=== PATIENT | male | born 1960 | race Caucasian/White ===

== ENCOUNTER → 2023-05-03 08:10 | Outpatient (CLI) | payer SELFPAY ==
[2023-05-03 21:12] LABS: Alanine Aminotransferase 28 U/L (12-78); Albumin Level 4.1 g/dl (3.5-5.0); Albumin/Globulin Ratio 1.4 (1.1-1.8); Alkaline Phosphatase 105 U/L (38-126); Anion Gap 14.9 mEq/L (5-15); Aspartate Amino Transferase 28 U/L (17-59); Bilirubin,Total 0.8 mg/dl (0.2-1.3); Blood Urea Nitrogen 9 mg/dl (9-20); Carbon Dioxide 22 mmol/L (22.0-30.0); Chloride 100 mmol/L (98-107); Chol/HDL Ratio 4.2 (1-3.5); Cholesterol 140 mg/dl (140-200); Estimated Glomerular Filt Rate 86 ml/min (>60); GFR (African American) 104 ML/MIN (>60); HDL Cholesterol 33 mg/dl (40-60); Potassium 3.9 mmoL/L (3.5-5.1); Sodium 133 mmol/L (136-145); Total Protein,Serum 7.1 g/dl (6.3-8.2); Triglycerides 154 mg/dl (30-150); VLDL Cholesterol 31 mg/dL (0-40)
[2023-05-03 21:19] LABS: Glucose 402 mg/dl (74-100)
[2023-05-03 21:23] LABS: Direct LDL Cholesterol 85.01 mg/dL (100-129)
[2023-05-03 21:38] LABS: Basophils # 0.1 K/mm3 (0-0.2); Basophils % 1.2 % (0.1-2.0); Eosinophils # 0.2 K/mm3 (0.0-0.4); Eosinophils % 2.4 % (0.1-12.0); Hematocrit 52.9 % (42.0-52.0); Lymphocytes # 2.2 K/mm3 (0.7-4.5); Lymphocytes % 27.2 % (10-50); Mean Corpuscular Hemoglobin 34.3 pg (27.0-31.2); Mean Corpuscular Volume 100.8 fl (80-94); Mean Platelet Volume 12.5 fl (7.4-10.4); Monocytes # 0.5 K/mm3 (0.1-1.0); Monocytes % 6.6 % (1.7-9.3); Neutrophils # 5.1 K/mm3 (1.8-7.8); Neutrophils % 62.5 % (37.0-80.0); Platelet Count 164 K/mm3 (142-424); Red Blood Count 5.24 M/mm3 (4.60-6.20); Red Cell Distribution Width 13.5 % (11.5-17.5); White Blood Count 8.2 K/mm3 (4.8-10.8)
[2023-05-03 21:42] LABS: Prostate Specific Ag, Diagnost 0.329 ng/ml (0.0-4.0)
[2023-05-03 22:06] LABS: Hemoglobin A1C 11.3 % (4.0-6.0)
== END ==
PROVIDERS: PCP Family Medicine; Visit Provider Family Medicine
DX: E11.9 Type 2 diabetes mellitus without complications (principal); Z79.4 Long term (current) use of insulin; Z79.899 Other long term (current) drug therapy; Z12.5 Encounter for screening for malignant neoplasm of prostate
CPT/HCPCS: 80053; 80061; 83036; 84153; 85025

== ENCOUNTER 2025-05-17 10:41 | Emergency (ER) | payer SELFPAY ==
[2025-05-17 10:48] VITALS: BP 176/102; PULSE 87; O2SAT 96
[2025-05-17 10:49] VITALS: BP 171/100; PULSE 86; O2SAT 95
[2025-05-17 10:51] VITALS: BP 171/100; PULSE 85; RESP 13; TEMP 36.5; O2SAT 95; BMI 34.3
--- NOTE | 2025-05-17 10:56 | XR_ITS ---
FINAL REPORT CLINICAL HISTORY: Left knee pain after stepping up injury COMPARISON: None FINDINGS: LEFT KNEE 3 views of the left knee were obtained. There is no acute fracture or dislocation. Joint spaces are well-maintained. Chondrocalcinosis is noted at the meniscus. IMPRESSION: No acute bony abnormality. Reviewed, Interpreted and Dictated by Tim Hardy MD Transcribed by Osiris Herring Authenticated and [facility]
--- NOTE | 2025-05-17 10:57 | CA_ITS ---
FINAL REPORT TECHNIQUE: Compression maki scale and Doppler evaluation CLINICAL HISTORY: Left popliteal pain x 6 hours without injury FINDINGS: Femoral and popliteal veins show normal compressibility and flow. Visualized portion of the calf veins are patent by Doppler exam. IMPRESSION: No evidence of left lower extremity deep venous thrombosis Reviewed, Interpreted and Dictated by Tim Hardy MD Transcribed by Osiris Herring Authenticated and [facility]
--- NOTE | 2025-05-17 10:59 | HMH.EDGENADL ---
Discharge Plan Disposition Patient Disposition: Home, Self-Care Condition: Good Prescriptions Prescriptions: No Action pioglitazone 45 mg tablet 45 mg PO DAILY Qty: 90 3RF (DME) insulin syringe,safety needle 0.3 mL 29 gauge x 1/2 syringe See Rx Instructions .Route Qty: 100 3RF Rx Instructions: As directed amlodipine [Norvasc] 10 mg tablet 10 mg PO DAILY Qty: 90 3RF aspirin [Adult Low Dose Aspirin] 81 mg tablet,delayed release (DR/EC) 81 mg PO DAILY Qty: 90 3RF losartan 100 mg tablet 100 mg PO DAILY Qty: 90 3RF meloxicam 15 mg tablet 15 mg PO DAILY Qty: 90 3RF insulin glargine [Lantus Solostar U-100 Insulin] 100 unit/mL (3 mL) insulin pen 10 unit SQ HS Qty: 3 2RF hydrochlorothiazide 25 mg tablet See Rx Instructions .ROUTE .COMPLEX Qty: 90 3RF Dose Instruction: TAKE 1 TABLET BY MOUTH EVERY DAY Rx Instructions: TAKE 1 TABLET BY MOUTH EVERY DAY tadalafil 20 mg tablet 20 mg PO DAILY PRN (Reason: ED) Qty: 30 2RF Rx Instructions: administer approximately 30min before sexual activity; do not use more than 1 dose per 24hrs atorvastatin [Lipitor] 20 mg tablet 20 mg PO DAILY Qty: 90 3RF Novolin 70/30 U-100 Insulin 100 unit/mL (70-30) suspension See Rx Instructions .ROUTE .COMPLEX Qty: 30 1RF Dose Instruction: INJECT 15 UNITS SUBCUTANEOUSLY TWICE A DAY Rx Instructions: INJECT 15 UNITS SUBCUTANEOUSLY TWICE A DAY Referrals Follow up/Referrals: Jonathon Figueroa APRN [Primary Care Provider, Family Practice] - See instructions Cruz Kenny DO [Staff Physician, Orthopedics] - See instructions Activity Restrictions/Add. Instructions Additional Instructions/Restrictions: Please return to the emergency department with any worsening signs or symptoms. Please utilize your crutches and knee brace and ambulate as tolerated. I recommend rest ice ibuprofen Tylenol other anti-inflammatory medications as needed for symptomatic relief. We will call you with any results of your ultrasound once full radiology report is resulted. No news is good news. Please follow-up with orthopedic provider in the upcoming days/weeks. You will have to call to make this appointment. Could consider obtaining MRI of your knee if symptoms persist greater than 1 to 2 weeks. Clinical Impressions Clinical Impression: Strain of left knee Instructions Patient Instructions: DI for Knee Pain Print Language Print Language: Maltese Discharge ED Provider: Michelle Vera General Adult HPI General Chief complaint: PAIN Stated complaint: WC 05/17 0830, inj behind left knee Time Seen by Provider: 05/17/25 10:45 Mode of Arrival: Wheelchair Source of Information: Patient Description of Symptoms (Recalled from ER Triage Doc. by RN): pt presents to ED with c/o left leg pain. 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 pt reports pain from hip down to calf. pt reports pain is not in front of knee, but back of knee. History of Present Illness HPI narrative: 64-year-old male presents the emergency department with left knee pain that occurred this morning when he was trying to get up in my semi- . Patient states that he was stepping up in his truck with his right leg, when he went to lift his left leg when he heard a pop , and severe pain behind his knee, difficulty with ambulating, does have somewhat pain limited range of motion, patient has any fever chills chest pain shortness of breath, nausea vomiting constipation diarrhea no saddle anesthesia, no urinary bladder or bowel dysfunction, no lower back pain, no radicular symptomatology, no numbness or tingling down the lower extremity, no real lower extremity weakness, patient states when he places his full weight on the knee it is painful, patient states he has been walking on his toes , which helps. Patient is a current everyday smoker denies any alcohol or drug use, other past medical history consistent with hypertension, T2DM, hyperlipidemia. Initial triage vitals unremarkable Please note that above description of symptoms, in this electronic medical record under categorization of recalled from ER triage doctor by RN are reflective of an initial nursing assessment, however, is not reflective of my full history and physical exam that was personally taken and clarified. Consequentially, this preceding description of symptoms, which may include the patient's categorized chief complaint in the EMR, do not reflect my personal clinical impression, and the ultimate description of history of present illness and patient stated complaints should be deferred to this section of the note. Unless stated otherwise or congruent with this section of the note, additional signs, symptoms, or incongruence should be interpreted as inaccurate with my clinical impression. Onset (ago): hour(s) Related Data Previous Rx's ?Medication ?Instructions ?Recorded amlodipine 10 mg tablet (Norvasc) 10 mg PO DAILY #90 tabs 05/04/24 aspirin 81 mg tablet,delayed 81 mg PO DAILY #90 tabs 05/04/24 release (Adult Low Dose Aspirin) insulin glargine 100 unit/mL (3 10 unit (0.1 mL) SQ HS #3 mL 05/04/24 mL) subcutaneous pen (Lantus Solostar U-100 Insulin) losartan 100 mg tablet 100 mg PO DAILY #90 tabs 05/04/24 meloxicam 15 mg tablet 15 mg PO DAILY #90 tabs 05/04/24 hydrochlorothiazide 25 mg tablet See Rx Instructions .Route 07/27/24 .COMPLEX #90 tabs tadalafil 20 mg tablet 20 mg PO DAILY PRN ED #30 tabs 07/27/24 pioglitazone 45 mg tablet 45 mg PO DAILY #90 tabs 09/14/24 insulin syringe,safety needle 0.3 #100 ea 09/19/24 mL 29 gauge x 1/2 atorvastatin 20 mg tablet (Lipitor) 20 mg PO DAILY #90 tabs 01/17/25 insulin human U-100 NPH-regulr See Rx Instructions .Route 02/05/25 70-30 mix 100 unit/mL subcutaneous .COMPLEX #30 mL susp (Novolin 70/30 U-100 Insulin) Allergies Allergy/AdvReac Type Severity Reaction Status Date / Time Penicillins Allergy syncope Verified 07/27/24 14:57 Sulfa (Sulfonamide Allergy Hives Verified 07/27/24 14:57 Antibiotics) [facility] Disclaimer: The information contained in this section may have been updated after the patient was seen, as this information can be updated by other users. Medical History Encounter for commercial driving license (CDL) exam RACHEL-inhibitor cough Metformin adverse reaction Toe infection Surgical History Hx of rhinoplasty Hx of tonsillectomy Family History Father Diabetes Mother COPD (chronic obstructive pulmonary disease) Social History Smoking Status: Current every day smoker alcohol intake: former current occupational status: employed Travel in the last 8 weeks?: Inside the [place] Have you lived/traveled outside US in past 30 days?: No Contact w/someone who lives/traveled outside US past 30 days?: No Exposure to someone with infectious disease in past 14 days?: No Do you have a fever (greater than 100.4 F or 38 C)?: No Have you tested positive for COVID-19?: No Exposed to someone with COVID-19 in past 14 days?: No Do you have a sore throat?: No Do you have a cough?: No Do you have any weakness?: No Do you have any diarrhea?: No Are you experiencing any unusual bleeding?: No Do you have any muscle aches/pain?: No Do you have any abdominal pain?: No Are you experiencing loss of taste or smell?: No Other Medical History Have you received the Pneumonia Vaccine: No ROS Obtained: Yes All systems reviewed & no additional complaints except as documented Physical Exam General General appearance: alert and in no apparent distress Head Head exam: atraumatic and normocephalic Eye Eye exam: Present PERRL and EOMI ENT ENT exam: Present mucous membranes moist Neck Neck exam: Present normal inspection Chest Chest inspection: Present normal inspection and symmetric chest wall rise Respiratory Respiratory exam: Present normal lung sounds bilaterally; Absent respiratory distress Cardiovascular Cardiovascular exam: Present regular rate and normal rhythm Abdominal Exam Abdominal exam: Present soft; Absent tenderness Extremities Exam Extremities exam: Present normal inspection, full ROM, calf tenderness and other (Patient has some mild calf tenderness, has some difficulty with flexion, but does have near full flexion no difficulty with extension, 5 out of 5 strength, otherwise neurovascular intact, pain behind his posterior aspect/popliteal fossa of the left knee, no midline joint effusion or significant soft); Absent tenderness or joint swelling Neurological Exam Neurological exam: Present alert and oriented X3 Psychiatric Psychiatric exam: Present normal affect Skin Skin exam: Present warm and dry Medical Decision Making Medical Records Medical records reviewed: Yes I reviewed the patient's medical records. Screening: Per USPSTF and CDC recommendations, given the prevalence of disease in our region, it is our hospital?s policy to screen for HIV and viral Hepatitis for all patients aged 18 and over and those with ongoing risk factors. Tony Inquiry Pt receiving controlled substance: No Tony was queried for this patient: No Vital Signs: 05/17/25 10:48 05/17/25 10:49 05/17/25 10:51 Temperature 97.7 F Temperature Source Oral Pulse Rate 87 86 Pulse Rate [Left Radial] 85 Respiratory Rate 13 Blood Pressure 176/102 H 171/100 H Blood Pressure [Right Arm] 171/100 H Blood Pressure Mean [Right Arm] 123 02 Sat by Pulse Oximetry 96 95 95 Orders (Tests/Meds): ED MEDICATIONS Discontinued Medications Generic Name Dose Route Start Last Admin Trade Name John PRN Reason Stop Dose Admin Ketorolac Tromethamine 15 mg 05/17/25 10:58 05/17/25 11:29 Ketorolac 15mg/Ml Vial IM 05/17/25 10:59 15 mg ONCE ONE Administration ORDERS Category Date Time Status XR knee LT 3V Stat Exams 05/17/25 10:56 Taken CA venous doppler LE LT Stat Y 05/17/25 10:57 Completed Medical Decision Narrative: 64-year-old male presents to the emergency department with left knee pain that occurred this morning when trying to get up into his truck, describes it as a pop , differential diagnose include but not limited to, ruptured Valdez's cyst, DVT, knee sprain/strain, knee fracture, bursitis, knee ligamentous injury among others. I discussed this patient's case with the attending physician Dr. Vera Will give the patient 15 mg IM Toradol for symptomatic relief, will also obtain a left knee x-ray as well as lower extremity duplex ultrasound to rule out DVT and other pathology. I reviewed the patient's knee x-ray along with corresponding radiologic report, no acute abnormality. I along with the attending physician reviewed and independently interpreted the patient's duplex ultrasound, negative for DVT, no Valdez's cyst. I discussed these results/recommendations with the patient and family the bedside I recommend rest anti-inflammatory medications ice, elevation for symptomatic relief, will give the patient crutches as needed for ambulation, ambulate as tolerated, patient states he has knee brace at home that he will utilize as needed. Patient will follow-up with orthopedic provider in the upcoming days/weeks. We will call patient with any results of his radiology report of his duplex ultrasound once resulted, discussed/gave options for the patient to wait for full report or be discharged home to self-care patient would like to be discharged home to self-care will call patient with any results that are actionable. Patient was given strict ED return precautions. Patient follow-up PCP and other providers in the upcoming days/weeks. Patient voiced understanding and agreement with the current treatment plan/discharge plan Critical Care Critical Care Time Critical Care Time: No
--- OUTSIDE RECORDS SUMMARY | 2025-05-17 11:18 | XMS_ITS | Encounter Summary ---
Author Organization [place] [address] Care Team Providers Care Porcelain Finish Sprayer Name Role Phone Cleo Bolanos APRN Primary Care Provider [phone] Encounter Details Date Type Department Care Team (Late st Contact Info) Description 10/04/2018 Patient Outreach [facility] [address] [place] [address] Cleo Bolanos APRN [address] [place] [address] Social History Tobacco Use Types Packs/Day Years Used Date Smoking Tobacco: Every Day Cigarettes 1 40 Smokeless Tobacco: Never Comments:pt smokes 5 cigars a day Alcohol Use Standard Drinks/Week Comments Yes 0 (1 standard drink = 0.6 oz pur e alcohol) social Sex and Gender Information Value Date Recorded Sex Assigned at Not on file Legal Sex Male 1:47 AM EDT Gender Identity Not on file Sexual Orientation Not on file documented as of this encounter Plan of Treatment Scheduled Orders Name Type Priority Associated Diagnoses Orde r Schedule BASIC METABOLIC PANEL Lab Routine DM (diabetes mellitus) (HCC) 1 Occurrences starting 10/04/2018 until 01/03/2019 HEPATIC FUNCTION PANEL Lab Routine DM (diabetes mellitus) (HCC) 1 Occurrences starting 10/04/2018 until 01/03/2019 LIPID SCREEN Lab Routine DM (diabetes mellitus) (HCC) 1 Occurrences starting 10/04/2018 until 01/03/2019 HEMOGLOBIN A1C Lab Routine DM (diabetes mellitus) (HCC) 1 Occurrences starting 10/04/2018 until 01/03/2019 documented as of this encounter Goals Goal Patient Goal Type Associated Problems Recent Progress Patient-Stated? Author Blood Pressure < 130/80 Blood Pressure 136/84(2022 8:27 AM EST) No Ilene Blackwell DO BMI (Calculated) < 30 General 35.3(07/27/19 8:27 AM EST) No Dunia Nelson CCMA Maintain a healthy diet, exercise regularly and maintain an ideal body weight General No Machelle Cruz RMA Stay Tobacco Free Lifestyle No Machelle Cruz RMA HDL > 40 Result Component 35(07/27/2022 9:04 AM EST) No Ilene Blackwell DO HEMOGLOBIN A1C < 7.0 Result Component 8(07/27/2022 9:04 AM EST) No Ilene Blackwell DO LDL CALC < 100 Result Component 76(07/27/2022 9:04 AM EST) No Ilene Blackwell DO documented as of this encounter Visit Diagnoses Diagnosis DM (diabetes mellitus) (HCC) Type II or unspecified type diabetes mellitus without mention of complication, not stated as uncontrolled documented in this encounter Care Teams Porcelain Finish Sprayer Relationship Specialty Start Date End Date Cleo Bolanos APRN [address] [place] [phone] PCP - General Nurse Practitioner 09/14/18 03/12/24 documented as of this encounter
--- OUTSIDE RECORDS SUMMARY | 2025-05-17 11:18 | XMS_ITS | Encounter Summary ---
Author Organization [place] [address] Care Team Providers Care Acquisitions Logistics Analyst Name Role Phone Cleo Bolanos APRN Primary Care Provider [phone] Encounter Details Date Type Department Care Team (Late st Contact Info) Description 11/25/2018 [facility] [address] [place] [address] Cleo Bolanos APRN [address] [place] [address] Social History Tobacco Use Types [...] DM (diabetes mellitus) (HCC) 1 Occurrences starting 11/25/2018 until 02/25/2019 HEPATIC FUNCTION PANEL Lab Routine DM (diabetes mellitus) (HCC) 1 Occurrences starting 11/25/2018 until 02/25/2019 LIPID SCREEN Lab Routine DM (diabetes mellitus) (HCC) 1 Occurrences starting 11/25/2018 until 02/25/2019 HEMOGLOBIN A1C Lab Routine DM (diabetes mellitus) (HCC) 1 Occurrences starting 11/25/2018 until 02/25/2019 documented as of this encounter Goals Goal [...] uncontrolled documented in this encounter Care Teams Acquisitions Logistics Analyst Relationship Specialty Start Date End Date Cleo Bolanos APRN [address] [place] [phone] PCP - General Nurse Practitioner 09/14/18 03/12/24 documented as of this encounter
--- OUTSIDE RECORDS SUMMARY | 2025-05-17 11:18 | XMS_ITS | Patient Health Record ---
[facility] Address [address] [facility] [address] [place] [id number] Care Team Providers Care Coin Machine Servicer Repairer Name Role Phone Harsh Mccollum Unavailable [phone] Allergies Allergen (clinical drug ingredient) Drug/Non Drug Allergy documented on EMR Reaction Allergy Type Onset Date Status Penicillin Unknown Drug Allergy Active Reason For Referral No Information Medications Medication SIG (Take, Route, Frequency, Duration) Notes Start Date End Date Status Losartan Potassium 100 MG 1 tab(s) orally once a day Active metFORMIN HCl 1000 MG 5 mL orally once a day Active Plan Of Treatment No Information Medical (General) History Medical History History ICD Code hypertension type 2 diabetes Surgical History Surgery Date(Month/Year) vasectomy tonsillectomy
--- OUTSIDE RECORDS SUMMARY | 2025-05-17 11:18 | XMS_ITS ---
Author Organization Unknown ENCOUNTERS Encounter Performer Location Date Diagnosis Diagnosis Status Emergency [facility] [address] [place] [address] [id number] Pre Admit [facility] [address] [place] [address] [id number] *Note: Encounters from your own facility or health system may be excluded. Allergies, Adverse Reactions, Alerts Allergen Type Severity Identification Date Sulfa (Sulfonamide Antibiotics) drug allergy [id number] Penicillins drug allergy [id number] Medications Name Date Quantity Days Supplied GPI Number
--- OUTSIDE RECORDS SUMMARY | 2025-05-17 11:18 | XMS_ITS | Clinical Summary ---
Author Organization [facility] Address [address] [place] [address] Phone Care Team Providers Care Residential Builder Name Role Phone Unavailable Primary Care Provider Unavailabl e Allergies Active Allergy Reactions Criticality Noted Date Comments Penicillins Anaphylaxis High 07/11/2010 Sulfa (Sulfonamide Antibiotics) Hives Medium 09/2010 Medications aspirin (ASPIRIN) 81 mg Oral Tablet, ChewableIndicatio ns:Severe uncontrolled hypertension Take 1 Tab by mouth daily. 30 Tab 0 6 Active amLODIPine (NORVASC) 5 mg Oral TabletIndications :Diabetes mellitus with coincident hypertension (HCC) Take 1 Tablet by mouth daily. 90 Tablet 3 3 Active hydroCHLOROthiazi de (HYDRODIURIL) 25 mg Oral TabletIndications :Diabetes mellitus with coincident hypertension (HCC),Renal tubular acidosis, type 4 Take 1 Tablet by mouth daily. 90 Tablet 3 3 Active losartan (COZAAR) 100 mg Oral TabletIndications :Diabetes mellitus with coincident hypertension (HCC) Take 1 Tablet by mouth daily. 90 Tablet 3 3 Active metFORMIN (GLUCOPHAGE) 1,000 mg Oral TabletIndications :Type 2 diabetes mellitus without complication, without long-term current use of insulin (HCC) Take 1 Tablet by mouth 2 times daily (with meals). 180 Tablet 3 3 Active Tadalafil 20 mg Oral TabletIndications :Erectile dysfunction, unspecified erectile dysfunction type Take 1 Tablet by mouth as needed. 6 Tablet 11 3 Active traZODone (DESYREL) 100 mg Oral TabletIndications :Insomnia, persistent Take 1-2 Tablets by mouth nightly. 180 Tablet 3 3 Active meloxicam (MOBIC) 15 mg Oral TabletIndications :Arthritis Take 1 Tablet by mouth daily as needed for Pain. 90 Tablet 3 3 Active pioglitazone (ACTOS) 45 mg Oral TabletIndications :Type 2 diabetes mellitus without complication, without long-term current use of insulin (HCC) Take 1 Tablet by mouth daily. 90 Tablet 3 3 Active pioglitazone (ACTOS) 30 mg Oral TabletIndications :Type 2 diabetes mellitus without complication, without long-term current use of insulin (HCC) Take 1 Tablet by mouth daily. 30 Tablet 3 Active Active Problems Problem Noted Date Diagnosed Date Murmur, heart 03/19/2016 DM (diabetes mellitus) 08/25/2012 Tinnitus, bilateral 08/25/2012 HTN (hypertension) 07/11/2010 Surgical History Surgery Date Site/Laterality Comments FRACTURE SURGERY Right right leg TONSILLECTOMY RHINOPLASTY UVULOPALATOPHARYGOPLASTY Medical History Medical History Date Comments HTN (hypertension) DM (diabetes mellitus) (HCC) 08/25/2012 Murmur, heart 03/19/2016 Family History Medical History Relation Name Comments Diabetes Brother 1 Arthritis Father Diabetes Father Arthritis Mother COPD Mother Pulmonary Fibrosis Mother Diabetes Sister Relation Name Status Comments Brother 1 Alive Brother 2 Alive Father Mother Sister Alive Social History Tobacco Use Types Packs/Day Years Used Date Smoking Tobacco: Every Day Cigarettes 1.5 48.9 Started: 07/05/1976 Smokeless Tobacco: Never Tobacco Cessation:Ready to Q uit: No; Counseling Given: Yes Comments:pt smokes 5 cigars a day Alcohol Use Standard Drinks/Week Comments Yes 0 (1 standard drink = 0.6 oz pur e alcohol) social AUDIT-C Answer Date Recorded Q1: How often do you have a drink containing alc ohol? 2-4 times a month 01/23/2021 Q2: How many drinks containi ng alcohol do you have on a typical day when you are drinking? 1 or 2 01/23/2021 Frequency of Binge Drinking Not on file 01/03 Overall Financial Resource Strain (CARDIA) Answe r Date Recorded How hard is it for you to pa y for the very basics like food, housing, medical care, and heating? Not hard at all 11/05/2020 PHQ-2 Answer Date Recorded PHQ-2 Total Score 0 07/27/2022 [facility] - Occupational Stress Questionnaire Answer Date Recorded Do you feel stress - tense, restless, nervous, or anxious, or unable to sleep at night because your mind is troubled all the time - these days? Not at all 11/05/2020 Exercise Vital Sign Answer Date Recorde d On average, how many days pe r week do you engage in moderate to strenuous exercise (like a brisk walk)? 0 days 11/05/2020 On average, how many minutes do you engage in exercise at this level? 0 min 11/05/2020 Hunger Vital Sign Answer Date Recorded Within the past 12 months, y ou worried that your food would run out before you got the money to buy more. Never true 11/06/19 21 Within the past 12 months, t he food you bought just didn't last and you didn't have money to get more. Never true 11/05/2020 PRAPARE - Transportation Answer Date Re corded In the past 12 months, has l ack of transportation kept you from medical appointments or from getting medications? No 10/2020 In the past 12 months, has l ack of transportation kept you from meetings, work, or from getting things needed for daily living? No 11/05/2020 Sex and Gender Information Value Date Recorded Sex Assigned at Not on file Legal Sex Male 1:47 AM EDT Gender Identity Not on file Sexual Orientation Not on file Last Filed Vital Signs Vital Sign Reading Time Taken Comments Blood Pressure 136/84 07/27/2022 8:27 AM EST Pulse 81 07/27/2022 8:27 AM EST Temperature 37 C (98.6 F) 07/27/2022 8:27 AM EST Respiratory Rate 16 07/27/2022 8:27 AM EST Oxygen Saturation 99% 07/27/2022 8:27 AM EST Inhaled Oxygen Concentration - - Weight 128 kg (282 lb 3.2 oz) 07/27/2022 8:27 AM EST Height 190.5 cm (6' 3 ) 07/27/2022 8:27 AM EST Body Mass Index 35.27 07/27/2022 8:27 AM EST Plan of Treatment Health Maintenance Due Date Last Done Comments Kidney Health: uACR 1980 DTaP/TDaP/Td (1 - Tdap) 1981 Pneumococcal Vaccine 50+ (1 of 2 - PCV) 1981 Cologuard 12/04/2007 Colon Cancer Screening 12/04/2007 Colonoscopy 12/04/2007 FIT 12/04/2007 Sigmoidoscopy 12/04/2007 Virtual Colonography 12/04/2007 Low Dose Lung Cancer Screening 2012 Zoster (1 of 2) 2012 Diabetic Eye Exam 12/16/2022 12/16/2020, , 05/12/2019 Annual Wellness Exam 12/19/2022 12/19/2021 Hemoglobin A1c 01/24/2023 07/27/2022, 12/03, 05/16/2021, Additional history exists Kidney Health: eGFR 07/27/2023 07/27/2022, 12/19/2021, 05/11/2019, Additional history exists Lipids 07/27/2023 07/27/2022, 12/03, 11/01/2020, Additional history exists COVID-19 Vaccine ( - 2024- season) 2025 Influenza Vaccine (#1) 2025 6 (Declined), 08/02/2015 (Declined) Hepatitis C Screening Completed 08/26/2015 Hepatitis B Vaccine Discontinued Meningococcal B Vaccine Aged Out No l onger eligible based on patient's age to complete this topic Goals Goal Patient Goal Type Associated Problems Recent Progress Patient-Stated? Author Blood Pressure < 130/80 Blood Pressure 136/84(2022 8:27 AM EST) No Ilene Blackwell, BMI (Calculated) < 30 General 35.3(07/27/19 8:27 AM EST) No Dunia Nelson CCMA Maintain a healthy diet, exercise regularly and maintain an ideal body weight General No Machelle Cruz RMA Stay Tobacco Free Lifestyle No Machelle Cruz RMA HDL > 40 Result Component 35(07/27/2022 9:04 AM EST) No Ilene Blackwell, HEMOGLOBIN A1C < 7.0 Result Component 8(07/27/2022 9:04 AM EST) No Ilene Blackwell DO LDL CALC < 100 Result Component 76(07/27/2022 9:04 AM EST) No Ilene Blackwell DO Procedures Procedure Name Priority Date/Time Associated Diagnosis Comments COMPREHENSIVE METABOLIC PANEL Routine 07/27/2022 9:04 AM EST Annual physical exam LIPID SCREEN Routine 07/27/2022 9:04 AM EST Annual physical exam HEMOGLOBIN A1C Routine 07/27/2022 9:04 AM EST Annual physical exam HM DIABETES EYE EXAM Routine 12/16/2020 HEPATITIS C ANTIBODY IGM + IGG Routine 08/26/2015 9:30 AM EST Severe uncontrolled hypertension Uncontrolled diabetes with kidney complications (HCC) from Last 3 Months or Most Recently Relevant to Health Maintenance Results * (ABNORMAL) HEMOGLOBIN A1C (07/27/2022 9:04 AM EST) Hgb A1C 8.0(H) 4.2 - 5.6 % 07/27/2022 2:25 PM EST [facility] Est. Avg Glucose 183 mg/dL 07/27/2022 2:25 PM EST [facility] Blood VENOUS BLOOD / Unknown Venipuncture / Unknown 07/27/2022 9:04 AM EST 07/27/2022 9:04 AM EST Narrative [facility] - 07/27/2022 2:25 PM EST REFERENCE RANGE: Normal: 4.0-5.6% Pre-diabetes: 5.7-6.4% Provisional diagnosis of diabetes: >6.4% Hgb F>10% and anything which shortens red cell survival, such as hemolytic anemia, or unstable hemoglobin variants such as HbSS, HbSC, or HbCC, will lower the HbA1c value associated with a given level of glycemic control. us Cleo Bolanos [employer]UMBER HAND[employer]ER CHEMISTRY ORDERABLES Final Res ult [facility] [address] [facility] , [place] [address] * (ABNORMAL) LIPID SCREEN (07/27/2022 9:04 AM EST) Cholesterol 137 <200 mg/dL 07/27/2022 2:39 PM EST [facility] Comment: < 200 Desirable 200 - 239 Borderline High >= 240 High Triglyceride 149 <150 mg/dL 07/27/2022 2:39 PM EST [facility] Comment: < 150 Normal 150 - 199 Borderline High 200 - 499 High >= 500 Very High HDL 35(L) >=40 mg/dL 07/27/2022 2:39 PM EST [facility] Comment: > 60 Optimal 40 - 60 Acceptable < 40 Low LDL Calculated 76 <100 mg/dL 07/27/2022 2:39 PM EST [facility] Comment: < 100 Optimal 100 - 129 Near or above optimal 130 - 159 Borderline High 160 - 189 High >= 190 Very High Non-HDL-C Calculated 102 <=129 mg/dL 07/27/2022 2:39 PM EST [facility] Comment: <130 Desirable 130-159 Above Desirable 160-189 Borderline High 190-219 High >= 220 Very High Fasting Specimen? Yes None 023 2:39 PM EST [facility] Blood VENOUS BLOOD / Unknown Venipuncture / Unknown 07/27/2022 9:04 AM EST 07/27/2022 9:04 AM EST us Cleo Bolanos [employer]UM[employer] HAND[employer] CHEMISTRY ORDERABLES Final Res ult [facility] [address] [facility] , [place] [address] [facility] [address] [place] [address] * (ABNORMAL) COMPREHENSIVE METABOLIC PANEL (07/27/2022 9:04 AM EST) Sodium 137 136 - 145 mmol/L 07/27/2022 2:39 PM EST [facility] Potassium 3.7 3.5 - 5.0 mmol/L 07/27/2022 2:39 PM EST [facility] Chloride 99 98 - 107 mmol/L 07/27/2022 2:39 PM EST [facility] Total CO2 24 22 - 29 mmol/L 07/27/2022 2:39 PM EST [facility] Anion Gap 14 7 - 16 mmol/L 07/27/2022 2:39 PM EST [facility] Calcium 9.4 8.6 - 10.4 mg/dL 07/27/2022 2:39 PM EST [facility] Glucose Lvl 170(H) 74 - 100 mg/dL 07/27/2022 2:39 PM EST [facility] BUN 21(H) 6 - 20 mg/dL 07/27/2022 2:39 PM EST [facility] Creatinine 1.01 0.67 - 1.30 mg/dL 07/27/2022 2:39 PM EST [facility] Albumin 4.5 3.5 - 5.2 gm/dL 07/27/2022 2:39 PM EST [facility] Total Protein 8.1 6.4 - 8.3 gm/dL 07/27/2022 2:39 PM EST [facility] Bili Total 0.6 0.1 - 1.4 mg/dL 07/27/2022 2:39 PM EST [facility] ALT 23 <=41 U/L 07/27/2022 2:39 PM EST [facility] AST 22 <=40 U/L 07/27/2022 2:39 PM EST [facility] Alk Phos 78 40 - 129 U/L 07/27/2022 2:39 PM EST [facility] eGFR (CKD-EPIcr 2020) 86 >=60 mL/min/1.7 3 m2 07/27/2022 2:39 PM EST [facility] Comment:Estimated GFR was ca lculated using the CKD-EPIcr (2020) equation refit without race. The equation is recommended by the [employer] - [employer]ph[employer] Task Force. Blood VENOUS BLOOD / Unknown Venipuncture / Unknown 07/27/2022 9:04 AM EST 07/27/2022 9:04 AM EST Cleo Bolanos LUMBER HANDLER CHEMISTRY ORDERABLES Final Res ult Performing Organization Address City/[facility]/ZIP Co de Phone Number [facility] [address] [facility], [place] [address] [facility] [address] [place] [id number] * HM DIABETES EYE EXAM (12/16/2020) Left Diabetic Retinopathy Not Present Present/Not Present SEP OFFICE Right Diabetic Retinopathy Not Present Present/Not Present SEP OFFICE us Historical Provider HEALTH MAINTENANCE Final Res ult Performing Organization Address [facility] Co de Phone Number SEP OFFICE * HEPATITIS C ANTIBODY IGM + IGG (08/26/2015 9:30 AM EST) Hep C Ab Negative Negative [facility] Blood specimen (specimen) UPPER LIMB STRUCTURE / Unknown 08/26/2015 9:30 AM EST 08/26/2015 2:00 PM EST Keesha Oliveira MD IMMUNOLOGY ORDERABLES Fi nal Result Performing Organization Address City/[facility] Co de Phone Number [facility] [address] [place] [address] from Last 3 Months or Most Recently Relevant to Health Maintenance
[2025-05-17] MEDS: KETOROLAC 15MG/ML VIAL 15 MG IM (11:29)
[2025-05-17 11:57] VITALS: BP 171/100; PULSE 89; RESP 16; TEMP 36.7; O2SAT 94
== END 2025-05-17 11:58 | disposition home or self-care (01) ==
PROVIDERS: Emergency Provider Student in an Organized Health Care Education/Training Program; PCP Nurse Practitioner Family
DX: S86.912A Strain of unspecified muscle(s) and tendon(s) at lower leg level, left leg, initial encounter (principal); I10 Essential (primary) hypertension; E11.9 Type 2 diabetes mellitus without complications
CPT/HCPCS: 73562; 93971; 96372; 99284; J1885